=== PATIENT | male | born 1955 | race Hispanic/Latino ===

== ENCOUNTER 2025-04-12 09:58 | Emergency (ER) | payer OTHER ==
[~2025-04-12] VITALS: Ht 167.6 cm; Wt 70.3 kg
[2025-04-12] MEDS: 0.9%NACL 1000ML 1,000 ML IV ONE ×2 (10:25→13:15)
--- NOTE | 2025-04-12 10:31 | ERN ---
General Chief Complaint: Weakness Stated Complaint: WEAKNESS Time Seen by MD: 10:01 Source: patient History of Present Illness Initial Comments PATIENT IS A 69-YEAR-OLD MALE COMING IN COMPLAINING OF WEAKNESS. PATIENT STATES THAT WHEN HE TRIES TO AMBULATE HE FEELS OFF BALANCE HAS BEEN ONGOING FOR TWO WEEKS. Allergies: Coded Allergies: No Known Drug Allergies (Unverified Allergy, Unknown, 04/12/25) Past Medical History Past Medical History: Diabetes-Type II Past Surgical History: None ROS Dictation CONSTITUTIONAL: NO CHILLS, NO FEVER, WEAKNESS, NO DIAPHORESIS, NO MALAISE. HEAD/FACE: NO SIGNS OF TRAUMA. EENT: NO EYE PAIN, NO BLURRED VISION, NO TEARING, NO DOUBLE VISION, NO EAR PAIN, NO EAR DISCHARGE, NO NOSE PAIN, NO NASAL CONGESTION, NO THROAT PAIN, NO THROAT SWELLING, NO MOUTH PAIN. RESPIRATORY: NO COUGH, NO ORTHOPNEA, NO SOB, NO STRIDOR, NO WHEEZING. CARDIOVASCULAR: NO CHEST PAIN, NO EDEMA, NO PALPITATIONS, NO SYNCOPE. GASTROINTESTINAL/ABDOMINAL: NO ABDOMINAL PAIN, NO CONSTIPATION, NO DIARRHEA, NO NAUSEA, NO VOMITING. GENITOURINARY: NO ABNORMAL DISCHARGE, NO DYSURIA, NO FREQUENT URINATION, NO HEMATURIA. NO COMPLAINTS OF PAIN IN THE GENITALS. MUSCULOSKELETAL: NO BACK PAIN, NO GOUT, NO JOINT PAIN, NO JOINT SWELLING, NO MUSCLE PAIN, NO MUSCLE STIFFNESS, NO NECK PAIN. INTEGUMENTARY: NO CHANGE IN COLOR, NO CHANGE IN HAIR/NAILS, NO DRYNESS, NO LESION, NO LUMPS, NO RASH. NEUROLOGICAL/PSYCH: NO ANXIETY, NOT DEPRESSED, NO EMOTIONAL PROBLEM, NO HEADACHE, NO NUMBNESS, NO PRE-EXISTING DEFICIT, NO HISTORY OF SEIZURES, NO TREMORS, NO WEAKNESS. HEMATOLOGIC/LYMPHATIC: NOT ANEMIC, NO HISTORY OF BLOOD CLOTS, NO APPARENT BLEEDING, NO BRUISING, GLANDS NOT SWOLLEN. ALL SYSTEMS NEGATIVE, EXCEPT NOTED. Physical Exam Physical Exam Dictation VITAL SIGNS: REVIEWED. GENERAL APPEARANCE: ALERT, ORIENTED X3, NO ACUTE DISTRESS, OBESE. HEAD AND FACE: NON-TRAUMATIC. EYES: PERRL, PINK CONJUNCTIVAS, EYELID NO TRAUMA, ANTERIOR CHAMBER CLEAR. EARS: PINNAS INTACT AND NO SIGNS OF TRAUMA OR ERYTHEMA. EAR CANALS CLEAR AND NO DISCHARGE. TMS NO ERYTHEMA. NOSE: NO DISCHARGE, NO BLEEDING. OROPHARYNX: MOUTH NORMAL, TEETH NO CARIES, TONGUE PINK. PHARYNX CLEAR, NO ERYTHEMA. TONSILS NO EXUDATES, NO ABSCESSES NOTED. MUCOUS MEMBRANE MOIST. NECK: SUPPLE, NON-TENDER, NO THYROMEGALY, NO MASSES, NO JVD, NO BRUITS. BREAST: DEFERRED. CHEST: NO TENDERNESS, NO CREPITUS, NO PARADOXICAL MOVEMENT, NO RETRACTIONS. LUNGS: CLEAR, WELL-VENTILATED, SYMMETRIC, NO RALES, NO WHEEZING, NO RHONCHI, NO STRIDOR, GOOD BREATH SOUNDS BILATERALLY. HEART: REGULAR RATE, REGULAR RHYTHM, NO MURMUR, NO GALLOPS. VASCULAR: NO PERIPHERAL EDEMA. ABDOMEN: SOFT, POSITIVE BOWEL SOUNDS, NONDISTENDED, NO GUARDING, NONTENDER, NO REBOUND, NO MASSES NO HEPATOMEGALY, NO SPLENOMEGALY, NO ALAMO'S SIGN, NO HERNIAS. RECTAL: DEFERRED. GENITAL: DEFERRED. NEUROLOGICAL: NORMAL SPEECH, GROSS MOTOR FUNCTION INTACT, GROSS SENSORY FUNCTION INTACT. MUSCULOSKELETAL: NECK NONTENDER, FULL RANGE OF MOTION, BACK NONTENDER, FULL RANGE OF MOTION. EXTREMITIES: NONTENDER, FULL RANGE OF MOTION. SKIN: COLOR PINK, DRY, NO TURGOR, NO RASH, NO LACERATIONS, NO ABRASIONS, NO CO NTUSIONS. LYMPHATICS: DEFERRED. Results Laboratory and Microbiology Lab and Micro Result Laboratory Tests Test 04/12/25 10:09 04/12/25 10:15 04/12/25 12:05 Influenza Type A Antigen Negative For Type A Influenza Type B Antigen Negative For Type B SARS-CoV-2, RNA, NAAT NEGATIVE SARS CoV-2 White Blood Count 6.8 K/uL (4.8-10.8) Red Blood Count 4.35 MIL/uL (4.50-6.20) L Hemoglobin 14.2 g/dL (14.0-18.0) Hematocrit 39.3 % (42-54) L Mean Corpuscular Volume 90.3 fL (79-99) Mean Corpuscular Hemoglobin 32.6 pg (27.0-33.0) Mean Corpuscular Hemoglobin Concent 36.1 g/dL (32.0-36.0) H Red Cell Distribution Width 11.9 % (11.0-15.5) Platelet Count 257 K/uL (130-400) Mean Platelet Volume 10.9 fL (7.5-10.5) H Immature Granulocyte % (Auto) 0.3 % (0-1) Neutrophils (%) (Auto) 47.5 % (40.0-77.0) Lymphocytes (%) (Auto) 42.8 % (21.0-51.0) Monocytes (%) (Auto) 8.4 % (3.0-13.0) Eosinophils (%) (Auto) 0.6 % (0.0-8.0) Basophils (%) (Auto) 0.4 % (0.0-5.0) Neutrophils # (Auto) 3.2 K/uL (1.8-7.7) Lymphocytes # (Auto) 2.9 K/uL (1.0-4.8) Monocytes # (Auto) 0.6 K/uL (0.1-1.0) Eosinophils # (Auto) 0.04 K/uL (0.00-0.70) Basophils # (Auto) 0.03 K/uL (0.00-0.20) Absolute Immature Granulocyte (auto 0.02 K/uL (0-1) Nucleated Red Blood Cells 0.0 % (0.0-0.19) Red Blood Cell Morphology ANISO 1+ Prothrombin Time 11.0 SEC (9.6-11.6) Prothromb Time International Ratio 1.04 (0.85-1.15) Activated Partial Thromboplast Time 29.6 SEC (26.3-35.5) Sodium Level 137 mmol/L (136-145) Potassium Level 3.1 mmol/L (3.5-5.1) L Chloride Level 102 mmol/L (101-111) Carbon Dioxide Level 17 mmol/L (21-32) L Blood Urea Nitrogen 16 mg/dL (7-18) Creatinine 1.2 mg/dL (0.5-1.3) Glomerular Filtration Rate Calc 66 mL/min (>90) Random Glucose 143 mg/dL (70-105) H Total Calcium 8.9 mg/dL (8.5-10.1) Magnesium Level 1.80 mg/dL (1.80-2.40) Total Creatine Kinase 317 U/L (21-232) H Troponin I High Sensitivity 8 ng/L (4-75) Urine Color LIGHT-YELLOW (YELLOW) Urine Appearance CLEAR (CLEAR) Urine pH 5.5 (5.0-8.0) Urine Specific [place] 1.006 (1.001-1.031) Urine Protein NEGATIVE mg/dL (NEGATIVE) Urine Glucose (UA) NEGATIVE mg/dL (NEGATIVE) Urine Ketones 10 mg/dL (NEGATIVE) H Urine Occult Blood NEGATIVE (NEGATIVE) Urine Nitrate NEGATIVE (NEGATIVE) Urine Bilirubin NEGATIVE mg/dL (NEGATIVE) Urine Urobilinogen 0.2 mg/dL (0.2-1.0) Urine Leukocyte Esterase 75 Lazarus/uL (NEGATIVE) H Urine RBC None /HPF (0-1) Urine WBC 2-5 /HPF (0-1) H Urine Squamous Epithelial Cells RARE /HPF (0-2) Urine Bacteria None /HPF (None Seen) Labs Reviewed?: Yes EKG/XRAY/US/CT/MRI EKG Comment 04/12/2025 TIME 10:08 A.M. VENTRICULAR RATE 66 SINUS RHYTHM [place] [address] WAVE ELEVATION OR DEPRESSION MDM MDM: DIFFERENTIAL DIAGNOSIS: LOWER EXTREMITY WEAKNESS, TIA, CVA, HISTORY OF FOOTDROP, RATIONALE: TESTS CONSIDERED AND ORDERED SECONDARY TO SHARED DECISION MAKING INCLUDE: LABS, ECG AND RADIOLOGY PREVIOUS OUTSIDE RECORDS REVIEWED: OLD ER VISITS. RISK OF COMPLICATION AND/OR MORBIDITY OR MORTALITY OF PATIENT MANAGEMENT: NONE MEDICATIONS-PER MEDICATION RECONCILIATION NEED FOR HOSPITALIZATION: PATIENT DOES MEET CRITERIA FOR HOSPITALIZATION. NEED FOR EMERGENCY MAJOR/MINOR SURGERY: NO THERE ARE NO SOCIAL CONCERNS WITH THIS PATIENT. PRESCRIPTION DRUG MANAGEMENT PRESCRIPTIONS WILL INCLUDE SYMPTOMATIC CARE PATIENT'S PRIOR EXTERNAL MEDICAL RECORDS FROM OTHER ER VISITS WERE REVIEWED BY ME INDICATED. PRIOR TESTING AND RESULTS FROM PREVIOUS VISITS WERE REVIEWED. PRIOR TESTS WERE TAKEN INTO ACCOUNT WITH MEDICAL DECISION MAKING AND RESOURCE UTILIZATION, INDEPENDENT HISTORIAN/HISTORIANS WERE USED TO OBTAIN COMPLETE MEDICAL HISTORY. I INDEPENDENTLY INTERPRETED THE TEST THAT WERE PERFORMED, RESULTS WERE REVIEWED BY ME AND CONSIDERED FINDINGS ON RADIOLOGY IF ORDERED. MEDICAL MANAGEMENT AND EXAMINATION INTERPRETATION DISCUSSIONS WERE HAD BY ME WITH OTHER QUALIFIED HEALTHCARE PROFESSIONALS INDICATED FOR THE PATIENT'S CARE. PATIENT WILL BE TRANSFERRED TO [facility] UNDER THE CARE OF DR. JOSEPH FOR ONGOING EVALUATION FROM THE NEUROLOGICAL STANDPOINT. ED Course Orders Procedure Category Date Status Time Cbc With Differential LAB 04/12/25 Complete 10:08 Prothrombin Time With LAB 04/12/25 Complete INR 10:08 Chest 1vw RAD 04/12/25 Resulted 10:08 12 Lead Ekg Tracing- EKG 04/12/25 Resulted Technical 10:08 0.9%Nacl 1000ml (Ns PHA 04/12/25 Complete 1000ml) 10:30 Magnesium LAB 11/2/25 Complete 10:08 Creatine Kinase, Total LAB 04/12/25 Complete 10:08 Troponin I High LAB 04/12/25 Complete Sensitivity 10:08 Urinalysis Profile LAB 04/12/25 Complete 10:08 Partial LAB 04/12/25 Complete Thromboplastin Time 10:08 Basic Metabolic Panel LAB 04/12/25 Complete 10:08 Ct Head/Brain W/O CT 04/12/25 Resulted Contrast 10:08 Blood Cult BLAISE 04/12/25 In Process 10:19 Influenza Type A & B, LAB 04/12/25 Complete Rapid 10:43 Covid Rna Naat LAB 04/12/25 Complete 10:43 Potassium Bicarb/Cit PHA 04/12/25 Complete Ac 25meq (K-Lyte Ta 12:00 Culture Urine BLAISE 04/12/25 In Process 12:24 0.9%Nacl 1000ml (Ns PHA 04/12/25 Complete 1000ml) 13:00 Current Medications Medications (Trade) Dose Ordered Sig/Jordon Route PRN Reason Start Time Stop Time Status Last Admin Dose Admin Potassium Bicarbonate (K-Lyte Tablet Eff 25 Meq Tablet.eff) 50 meq ONCE ONCE PO 04/12/25 12:00 04/12/25 12:01 DC 04/12/25 12:01 Sodium Chloride 1,000 ml @ 0 mls/hr ONCE ONCE IV 04/12/25 10:30 04/12/25 10:31 DC 04/12/25 10:25 Sodium Chloride 1,000 ml @ 0 mls/hr ONCE ONCE IV 04/12/25 13:00 04/12/25 13:01 DC 04/12/25 13:15 Vital Signs Date Time Temp Pulse Resp B/P (MAP) Pulse Ox O2 Delivery O2 Flow Rate FiO2 04/12/25 16:52 97.9 78 16 163/81 99 Room Air* 0 04/12/25 13:59 98.2 72 16 132/78 97 Room Air* 0 04/12/25 12:11 65 18 145/88 99 Room Air* 0 04/12/25 10:04 97.9 62 20 172/82 100 Room Air* 0 04/12/25 09:59 97.9 62 20 172/82 98 Room Air 0 DX & DISP Disposition: Transfer Decision to Admit Time: 17:27 Departure Impression: Primary Impression: CVA (cerebral vascular accident) Additional Impressions: TIA (transient ischemic attack), Lower extremity weakness Condition: Stable Referrals: SELF,REFERRAL (PCP) MARIO RAMSEY MD Apr 12, 2025 10:31
[2025-04-12 10:32] LABS: IMMATURE GRANULOCYTE ABSOLUTE 0.02 K/uL (0-1); NUCLEATED RED BLOOD CELLS 0.0 % (0.0-0.19); PLATELET COUNT (AUTO) 257 K/uL (130-400); RED BLOOD CELL COUNT(AUTO) 4.35 MIL/uL (4.50-6.20); RED CELL DISTRIBUTION WIDTH 11.9 % (11.0-15.5); WHITE BLOOD COUNT (AUTO) 6.8 K/uL (4.8-10.8)
[2025-04-12 10:43] LABS: INR 1.04 (0.85-1.15)
[2025-04-12 10:46] LABS: CREATINE KINASE, TOTAL 317.0 U/L (21-232); CREATININE 1.2 mg/dL (0.5-1.3); GLOMERULAR FILTR. RATE CALC 66.0 mL/min (>90); GLUCOSE,RANDOM 143.0 mg/dL (70-105); SODIUM SERUM 137.0 mmol/L (136-145); UREA NITROGEN, BLOOD 16.0 mg/dL (7-18)
--- NOTE | 2025-04-12 11:08 | HMCIMG ---
EXAM: CT Head Without IV contrast. CLINICAL HISTORY: OFF BALANCE TECHNIQUE: Axial computed tomography images of the head/brain without intravenous contrast. COMPARISON: None provided. FINDINGS: BRAIN: Mild age related neuroparenchymal atrophy. Mild chronic microvascular ischemic changes in the bilateral periventricular region. No evidence of acute hemorrhage. No mass lesion. No CT evidence for acute territorial infarct. No midline shift or extra-axial collections. VENTRICLES: No hydrocephalus. ORBITS: The orbits are unremarkable. SINUSES AND MASTOIDS: The paranasal sinuses and mastoid air cells are clear. BONES: No fracture. SOFT TISSUES: Unremarkable. IMPRESSION: 1. No acute intracranial findings. /Morrison
[2025-04-12 11:28] LABS: SARS-CoV-2, RNA, NAAT NEGATIVE SARS CoV-2 (NEGATIVE)
[2025-04-12 11:35] LABS: INFLUENZA TYPE A Negative For Type A (NEGATIVE); INFLUENZA TYPE B Negative For Type B (NEGATIVE)
--- NOTE | 2025-04-12 11:51 | EKG ---
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
[2025-04-12 12:23] LABS: APPEARANCE,URINE CLEAR (CLEAR); GLUCOSE, URINE (UA) NEGATIVE (NEGATIVE); LEUKOCYTE ESTERASE ,URINE 75 Leu/uL (NEGATIVE); NITRATE,URINE NEGATIVE (NEGATIVE); OCCULT BLOOD,URINE NEGATIVE (NEGATIVE)
[2025-04-12 12:24] LABS: ADD UA MICROSCOPIC YES
[2025-04-12 12:27] LABS: SQUAMOUS EPITHELIAL CELL,UR RARE /HPF (0-2)
--- NOTE | 2025-04-12 12:31 | HMCIMG ---
EXAM: CR Chest, 1 View. CLINICAL HISTORY: CP COMPARISON: None provided. FINDINGS: LUNGS: The lungs show no infiltrate or other acute finding. PLEURAL SPACES: No evidence of pleural effusion or pneumothorax. MEDIASTINUM: Cardiac size and mediastinal contours within normal limits. BONES: No aggressive appearing osseous lesion seen. IMPRESSION: 1. No acute cardiopulmonary findings. /Foss
--- NOTE | 2025-04-12 16:35 | NUR ---
TRANSFER REQUEST FOR NEUROLOGY SERVICE PER DR ROXY ADAMS RN
--- NOTE | 2025-04-12 16:36 | NUR ---
TRANSFER MET WITH PT AND SPOUSE INFORM OF TRANSFER DR RAMSEY HAD TO EXPLAIN ONCE MORE REGARDING TRANSFER FOR FURTHER EVALUATION AND TESTING DO TO UNBALANCE AND WEAKNESS BOTH VERBALIZED UNDERSTANDING AND CONSENT SIGNED. BRYAN CARROLL
[2025-04-12 16:52] VITALS: TEMP 97.8
--- NOTE | 2025-04-12 17:12 | NUR ---
TRANSFER , CALL PLACED TO [facility] SPOKE WITH TOYIN AND INFORMATION PROVIDED AND WILL CALL BACK. BRYAN CARROLL
--- NOTE | 2025-04-12 19:15 | NUR ---
transfer call place to [facility] [place] [place] [facility] spoke to [facility] pt accepted pending the bed . ER CN made aware. ebenezer cunningham
--- NOTE | 2025-04-12 22:51 | NUR ---
TRANSFER REPORT GIVEN TO THERESA CARROLL AT [facility]. PT GOING TO RM 1300
[2025-04-12 23:50] VITALS: BP 148/72; PULSE 68; RESP 17; O2SAT 98
== END 2025-04-12 23:50 | disposition short-term general hospital (02) ==
LOC: EDH 09:58
DX: I63.9 Cerebral infarction, unspecified (principal); G45.9 Transient cerebral ischemic attack, unspecified; R53.1 Weakness; E11.9 Type 2 diabetes mellitus without complications; Z20.822 Contact with and (suspected) exposure to COVID-19
CPT/HCPCS: 99285; 96360; 70450; 96361; 71045; 87635; 82550; 83735; 84484; 80048; 85025; 85610; 85730; 87040 ×2; 87086; 87804 ×2; 81001; 36415; 93005; J7030 ×2